=== PATIENT | female | born 2000 | race Caucasian/White ===

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

== ENCOUNTER 2021-03-15 09:51 | Outpatient (RCR) | payer OTHER, SELFPAY | END 2021-05-01 23:59 | LOC: IMMUN 09:51 | PROVIDERS: Referring Provider Family Medicine; Visit Provider Family Medicine | DX: Z23 Encounter for immunization (principal) | CPT/HCPCS: 0001A; 91300 ==